=== PATIENT | male | born 1990 | race Caucasian/White ===

== ENCOUNTER → 2017-02-07 | Outpatient (CLI) | payer MEDICAID ==
--- NOTE | 2017-02-07 20:03 | CT ---
EXAMINATION TYPE: CT abdomen pelvis w con DATE OF EXAM: 02/07/2017 7:39 PM COMPARISON: NONE HISTORY: Constipation and generalized abdominal pain x [address] DLP: 1412.00 mGycm Automated exposure control for dose reduction was used. TECHNIQUE: Helical acquisition of images was performed from the lung bases through the pelvis. CONTRAST: Performed with Oral Contrast and with IV Contrast, patient injected with 100 mL of Omnipaque 300. FINDINGS: Lung bases are clear. There is no pleural effusion. Heart size is normal. Liver spleen pancreas gallbladder appear normal. Bile ducts are not dilated. There is no adrenal mass . Kidneys show satisfactory contrast opacification. There is no hydronephrosis. Ureters are not dilat ed. There is no retroperitoneal adenopathy. There is no ascites. Bladder distends smoothly. There is no sign of a pelvic mass. I see no intestinal wall thickening. There are no dilated loops. Appendix a ppears normal. I see no bony destructive process. IMPRESSION: NEGATIVE CT SCAN OF THE ABDOMEN AND PELVIS. NORMAL APPENDIX.
== END ==
LOC: RADCTMAIN 19:05
PROVIDERS: ATTEND Internal Medicine
DX: K59.00 Constipation, unspecified (principal); R10.84 Generalized abdominal pain
CPT/HCPCS: 74177; Q9967

== ENCOUNTER 2020-04-22 00:50 | Emergency (ER) | payer MEDICAID ==
[2020-04-22 01:02] VITALS: BP 144/85; PULSE 97; RESP 18; TEMP 100.3
--- NOTE | 2020-04-22 01:31 | XR ---
EXAMINATION TYPE: XR chest 2V DATE OF EXAM: 04/22/2020 COMPARISON: NONE HISTORY: Fever. Short of breath TECHNIQUE: 2 views FINDINGS: Heart and mediastinum are normal. Lungs are clear. Diaphragm is normal. Bony thorax appears normal. IMPRESSION: Normal chest.
--- NOTE | 2020-04-22 01:45 | ED ---
Fever HPI - General Chief Complaint: Fever Stated Complaint: Fever, SOB Time Seen by Provider: 04/22/20 01:04 Source: patient Mode of arrival: ambulatory Limitations: no limitations - History of Present Illness Initial Comments: Patient is a 29-year-old male presenting to the emergency Department with complaints of a fever for the past 3 days. Patient states he went to lay down tonight to go to sleep when he had an episode of shortness of breath. Patient states he decided to come to the ER to be seen. He states that time he got to the ER he no longer feels short of breath. He does have a history of mild asthma. He denies having a cough, chest pain, nausea, vomiting, chest congestion, nasal congestion, sore throat, ear pain. He states he's been taking Tylenol at home for his fever. He has no further complaints at this time. Upon arrival to ER, patient was febrile, rest of vitals normal. - Related Data Previous Rx's Medication Instructions Recorded Albuterol Inhaler [Ventolin Hfa 1 puff INHALATION RT-QID PRN #1 04/22/20 Inhaler] puff Azithromycin [Zithromax Z-pack] 0 mg PO DIRECTED #1 pack 04/22/20 Allergies Allergy/AdvReac Type Severity Reaction Status Date / Time No Known Allergies Allergy Verified 04/22/20 01:02 Review of Systems ROS Statement: Those systems with pertinent positive or pertinent negative responses have been documented in the HPI. ROS Other: All systems not noted in ROS Statement are negative. Past Medical History Past Medical History: No Reported History History of Any Multi-Drug Resistant Organisms: None Reported Past Surgical History: No Surgical Hx Reported Past Psychological History: No Psychological Hx Reported Smoking Status: Light tobacco smoker Past Alcohol Use History: Daily Past Drug Use History: None Reported General Exam - General Exam Comments Initial Comments: GENERAL: Well-appearing, well-nourished and in no acute distress. HEAD: Atraumatic, normocephalic. EYES: Pupils equal round and reactive to light, extraocular movements intact, sclera anicteric, conjunctiva are normal. ENT: TMs normal, nares patent, oropharynx clear without exudates. Moist mucous membranes. NECK: Normal range of motion, supple without lymphadenopathy or JVD. LUNGS: Breath sounds clear to auscultation bilaterally and equal. No wheezes rales or rhonchi. HEART: Regular rate and rhythm without murmurs, rubs or gallops. ABDOMEN: Soft, nontender, normoactive bowel sounds. No guarding, no rebound. No masses appreciated. : Deferred EXTREMITIES: Normal range of motion, no pitting or edema. No clubbing or cyanosis. NEUROLOGICAL: Normal speech, normal gait. PSYCH: Normal mood, normal affect. SKIN: Warm, Dry, normal turgor, no rashes or lesions noted. Limitations: no limitations Course Vital Signs 04/22/20 01:00 Temperature 100.3 F H Pulse Rate 97 Respiratory 18 Rate Blood Pressure 144/85 O2 Sat by Pulse 97 Oximetry Medical Decision Making - Medical Decision Making Patient is a 29-year-old male here for fever 3 days. Exam is unremarkable. Chest x-ray shows no acute process. I discussed with patient that his symptoms are most likely viral in nature. However given his length of symptoms I did prescribe a Z-Angel Luis if symptoms persist as well as inhaler to use as needed for shortness of breath. Patient is in agreement with this plan of care. Return parameters were discussed with the patient and he verbalized understanding. Disposition Clinical Impression: Fever, Shortness of breath Disposition: HOME SELF-CARE Condition: Stable Instructions (If sedation given, give patient instructions): Fever in Adults (ED) Additional Instructions: Please return to the Emergency Department if symptoms worsen or any other concerns. Use inhaler as needed for shortness of breath. If fever continues, may start antibiotics. Follow up with PCP Prescriptions: Albuterol Inhaler [Ventolin Hfa Inhaler] 1 puff INHALATION RT-QID PRN #1 puff PRN Reason: Shortness Of Breath Azithromycin [Zithromax Z-pack] 0 mg PO DIRECTED #1 pack Is patient prescribed a controlled substance at d/c from ED?: No Referrals: Nathaniel Graf MD [Primary Care Provider] - 1-2 days
== END 2020-04-22 01:51 | disposition home or self-care (01) ==
LOC: EC 00:50
DX: R50.9 Fever, unspecified (principal); R06.02 Shortness of breath; F17.200 Nicotine dependence, unspecified, uncomplicated
CPT/HCPCS: 71046; 99283

== ENCOUNTER 2020-05-30 09:41 | Emergency (ER) | payer MEDICAID ==
[2020-05-30] MEDS ORDERED: SODIUM CHLORIDE 0.9% 1,000 ML IV STA (10:05)
[2020-05-30 10:27] LABS: Basophils % (A) 0 %; Eosinophils # (A) 0.1 k/uL (0-0.7); Eosinophils % (A) 1 %; HCT 46.4 % (39.0-53.0); HGB 16.1 gm/dL (13.0-17.5); Lymphocytes # (A) 1.1 k/uL (1.0-4.8); Lymphocytes % (A) 15 %; MCH 29.9 pg (25.0-35.0); MCHC 34.6 g/dL (31.0-37.0); MCV 86.3 fL (80.0-100.0); Monocytes # (A) 0.2 k/uL (0-1.0); Monocytes % (A) 3 %; Neutrophils % (A) 80 %; Platelet Count 194 k/uL (150-450); RBC 5.38 m/uL (4.30-5.90); RDW 12.9 % (11.5-15.5); WBC 7.5 k/uL (3.8-10.6)
--- NOTE | 2020-05-30 10:28 | ED ---
General Adult HPI - General Chief complaint: Dizziness Stated complaint: anxiety Time Seen by Provider: 05/30/20 09:46 Source: patient, RN notes reviewed, old records reviewed Mode of arrival: ambulatory Limitations: no limitations - History of Present Illness Initial comments: 29 old male presenting for evaluation of multiple complaints, patient has not felt well for the past one week. He's had symptoms of lightheadedness, he had an episode of chest pain yesterday afternoon. He has been quite stressed by his job and has felt anxious. He reports he did not eat or drink much yesterday and had an episode of lightheadedness and chest pain. He has no chest pain at the time my evaluation. He feels fatigued. No headache. He believes he had upper respiratory infection approximately one month ago and this may have been COVID, he states he symptoms have resolved. He is otherwise healthy. Severity scale (1-10): 0 - Related Data Home Medications Medication Instructions Recorded Confirmed No Known Home Medications 05/30/20 05/30/20 Allergies Allergy/AdvReac Type Severity Reaction Status Date / Time No Known Allergies Allergy Verified 05/30/20 10:28 Review of Systems ROS Statement: Those systems with pertinent positive or pertinent negative responses have been documented in the HPI. ROS Other: All systems not noted in ROS Statement are negative. Past Medical History Past Medical History: No Reported History History of Any Multi-Drug Resistant Organisms: None Reported Past Surgical History: No Surgical Hx Reported Past Psychological History: No Psychological Hx Reported Smoking Status: Never smoker Past Alcohol Use History: Occasional Past Drug Use History: None Reported General Exam Limitations: no limitations General appearance: alert, in no apparent distress Head exam: Present: atraumatic, normocephalic Eye exam: Present: normal appearance, PERRL, EOMI ENT exam: Present: mucous membranes dry Neck exam: Present: normal inspection. Absent: tenderness, meningismus Respiratory exam: Present: normal lung sounds bilaterally. Absent: respiratory distress, wheezes, rales Cardiovascular Exam: Present: regular rate, normal rhythm GI/Abdominal exam: Present: soft. Absent: distended, tenderness, guarding, rebound Extremities exam: Present: normal inspection, normal capillary refill. Absent: pedal edema Neurological exam: Present: alert, oriented X3, CN II-XII intact, other (No ataxia, normal finger to nose bilaterally, normal [id number] bilaterally.). Absent: motor sensory deficit Psychiatric exam: Present: anxious Skin exam: Present: warm, dry, intact. Absent: cyanosis, diaphoretic Course Vital Signs 05/30/20 05/30/20 09:45 10:07 Temperature 98.4 F Pulse Rate 83 Pulse Rate [ 82 Sitting] Pulse Rate [ 84 Standing] Pulse Rate [ 83 Supine] Respiratory 18 18 Rate Blood Pressure 140/88 Blood Pressure 140/86 [Sitting] Blood Pressure 139/84 [Standing] Blood Pressure 140/79 [Supine] O2 Sat by Pulse 99 Oximetry EKG Findings - EKG Comments: EKG Findings:: EKG: Normal sinus rhythm with sinus arrhythmia rate of 84, ID interval 126, QRS duration 96, QTC 437, no ST segment elevation. Medical Decision Making - Medical Decision Making 29-year-old male with symptoms suggestive of dehydration, anxiety. Patient has normal neurologic exam, stable vitals, EKG showing sinus rhythm. He has normal CBC, normal CMP, negative troponin, normal electrolytes. Feels better after IV hydration. I suspect component of poor appetite secondary to anxiety. He will be present with any worsening or changing symptoms. He will follow-up with his primary care physician. - Lab Data Result diagrams: 05/30/20 10:19 05/30/20 10:19 Lab Results 05/30/20 05/30/20 05/30/20 Range/Units 10:19 10:19 10:19 WBC 7.5 (3.8-10.6) k/uL RBC 5.38 (4.30-5.90) m/uL Hgb 16.1 (13.0-17.5) gm/dL Hct 46.4 (39.0-53.0) % MCV 86.3 (80.0-100.0) fL MCH 29.9 (25.0-35.0) pg MCHC 34.6 (31.0-37.0) g/dL RDW 12.9 (11.5-15.5) % Plt Count 194 (150-450) k/uL Neutrophils % 80 % Lymphocytes % 15 % Monocytes % 3 % Eosinophils % 1 % Basophils % 0 % Neutrophils # 6.0 (1.3-7.7) k/uL Lymphocytes # 1.1 (1.0-4.8) k/uL Monocytes # 0.2 (0-1.0) k/uL Eosinophils # 0.1 (0-0.7) k/uL Basophils # 0.0 (0-0.2) k/uL Sodium 140 (137-145) mmol/L Potassium 4.5 (3.5-5.1) mmol/L Chloride 104 (98-107) mmol/L Carbon Dioxide 26 (22-30) mmol/L Anion Gap 10 mmol/L BUN 12 (9-20) mg/dL Creatinine 0.85 (0.66-1.25) mg/dL Est GFR (CKD-EPI)AfAm >90 (>60 ml/min/1.73 sqM) Est GFR (CKD-EPI)NonAf >90 (>60 ml/min/1.73 sqM) Glucose 124 H (74-99) mg/dL Calcium 9.7 (8.4-10.2) mg/dL Magnesium 2.1 (1.6-2.3) mg/dL Total Bilirubin 1.2 (0.2-1.3) mg/dL AST 23 (17-59) U/L ALT 24 (4-49) U/L Alkaline Phosphatase 51 (38-126) U/L Troponin I <0.012 (0.000-0.034) ng/mL Total Protein 7.6 (6.3-8.2) g/dL Albumin 4.8 (3.5-5.0) g/dL Disposition Clinical Impression: Dehydration Disposition: HOME SELF-CARE Condition: Good Instructions (If sedation given, give patient instructions): Dizziness (ED), Dehydration (ED) Is patient prescribed a controlled substance at d/c from ED?: No Referrals: Nathaniel Graf MD [Primary Care Provider] - 1-2 days Time of Disposition: 11:16
[2020-05-30 10:43] LABS: ALT 24 U/L (4-49); AST 23 U/L (17-59); African American GFR (CKD) >90 (>60 ml/min/1.73 sqM); Albumin 4.8 g/dL (3.5-5.0); Alkaline Phosphatase 51 U/L (38-126); Anion Gap 10 mmol/L; Blood Urea Nitrogen 12 mg/dL (9-20); Calcium 9.7 mg/dL (8.4-10.2); Carbon Dioxide 26 mmol/L (22-30); Chloride 104 mmol/L (98-107); Glucose 124 mg/dL (74-99); Magnesium 2.1 mg/dL (1.6-2.3); Non-African American GFR(CKD) >90 (>60 ml/min/1.73 sqM); Potassium 4.5 mmol/L (3.5-5.1); Sodium 140 mmol/L (137-145); Total Bilirubin 1.2 mg/dL (0.2-1.3); Total Protein 7.6 g/dL (6.3-8.2)
[2020-05-30 11:37] VITALS: BP 136/77; PULSE 86; RESP 16; TEMP 98.1
== END 2020-05-30 11:30 | disposition home or self-care (01) ==
LOC: EC 09:41
DX: E86.0 Dehydration (principal)
CPT/HCPCS: 36415; 80053; 83735; 84484; 85025; 93005; 96360; 99284

== ENCOUNTER → 2020-06-23 | Outpatient (CLI) | payer MEDICAID ==
[2020-06-23 15:14] LABS: Basophils % (A) 0 %; Eosinophils % (A) 1 %; HCT 49.2 % (39.0-53.0); HGB 16.1 gm/dL (13.0-17.5); Lymphocytes # (A) 1.4 k/uL (1.0-4.8); Lymphocytes % (A) 20 %; MCH 28.6 pg (25.0-35.0); MCHC 32.7 g/dL (31.0-37.0); MCV 87.5 fL (80.0-100.0); Mean Platelet Volume 7.9; Monocytes # (A) 0.3 k/uL (0-1.0); Monocytes % (A) 4 %; Neutrophils # (A) 5.1 k/uL (1.3-7.7); Neutrophils % (A) 74 %; Platelet Count 204 k/uL (150-450); RBC 5.62 m/uL (4.30-5.90); RDW 12.8 % (11.5-15.5); WBC 6.9 k/uL (3.8-10.6)
[2020-06-23 19:06] LABS: African American GFR (CKD) 117.4 (60.0-200.0); Anion Gap 8.8 mmol/L (4.00-12.00); Calcium 10.2 mg/dL (8.7-10.3); Carbon Dioxide 29.2 mmol/L (21.6-31.8); Globulin 2.5 g/dL (1.6-3.3); Non-African American GFR(CKD) 101.3 (60.0-200.0); Potassium 4.8 mmol/L (3.5-5.5); Total Bilirubin 0.9 mg/dL (0.2-1.2); Total Protein 7.5 g/dL (6.2-8.2)
== END | disposition home or self-care (01) ==
LOC: LABWHC1 13:43
PROVIDERS: ATTEND Family Medicine
DX: M79.10 Myalgia, unspecified site (principal)
CPT/HCPCS: 36415; 80053; 82550; 85025; 86038; 86308; 86618; 86644; 86645

== ENCOUNTER → 2021-10-05 | Outpatient (CLI) | payer MEDICAID ==
[2021-10-05 15:15] LABS: Basophils # (A) 0.04 X 10*3/uL (0.00-0.10); Basophils % (A) 0.7 %; Eosinophils # (A) 0.07 X 10*3/uL (0.04-0.35); Eosinophils % (A) 1.1 %; HGB 16.5 g/dL (13.0-17.0); Lymphocytes # (A) 1.67 X 10*3/uL (0.90-5.00); Lymphocytes % (A) 27.4 %; MCH 29.9 pg (27.0-32.0); MCHC 34.4 g/dL (32.0-37.0); MCV 87.1 fL (80.0-97.0); Mean Platelet Volume 11.4 fL (9.5-12.2); Monocytes # (A) 0.49 X 10*3/uL (0.20-1.00); Neutrophils # (A) 3.77 X 10*3/uL (1.80-7.70); Neutrophils % (A) 61.8 %; Platelet Count 194 X 10*3/uL (140-440); RBC 5.51 X 10*6/uL (4.40-5.60); RDW 11.9 % (11.5-14.5)
[2021-10-05 18:55] LABS: ALT 35 U/L (10-49); AST 22 U/L (14-35); African American GFR (CKD) 115.7 (60.0-200.0); Albumin 5.1 g/dL (3.8-4.9); Albumin/Globulin Ratio 2.13 (1.60-3.17); Alkaline Phosphatase 61 U/L (41-126); Blood Urea Nitrogen 12.3 mg/dL (9.0-27.0); Calcium 9.8 mg/dL (8.7-10.3); Carbon Dioxide 24.3 mmol/L (21.6-31.8); Chloride 103 mmol/L (96-109); Chol/HDL Ratio 4.23 Ratio; Globulin 2.4 g/dL (1.6-3.3); Glucose 92 mg/dL (70-110); Non-African American GFR(CKD) 99.8 (60.0-200.0); Potassium 4.7 mmol/L (3.5-5.5); Sodium 143 mmol/L (135-145); Total Protein 7.5 g/dL (6.2-8.2)
== END | disposition home or self-care (01) ==
LOC: LABWHC1 10:11
PROVIDERS: ATTEND Family Medicine
DX: Z00.00 Encounter for general adult medical examination without abnormal findings (principal); R00.2 Palpitations; R53.83 Other fatigue
CPT/HCPCS: 36415; 80053; 80061; 82306; 84439; 84443; 85025

== ENCOUNTER → 2022-02-28 | Outpatient (CLI) | payer MEDICAID ==
--- NOTE | 2022-02-28 19:08 | CT ---
EXAMINATION TYPE: CT sinus wo con DATE OF EXAM: 02/28/2022 COMPARISON: None available HISTORY: Acute sinusitis CT DLP: 678.30 mGycm. Automated Exposure Control for Dose Reduction was Utilized. TECHNIQUE: CT scan of the sinuses is performed without contrast, axial images are obtained, coronal r eformatted images are also reviewed. FINDINGS: Slightly deviated bony nasal septum convex to the left side. Paradoxical middle turbinates. Remodelin g of the right inferior turbinate. No significant mucosal thickening of the nasal fossa bilaterally. Patent infundibulum bilaterally. 2.4 cm polyp/retention cyst at the alveolar recess of the left maxil mook sinus with 1.3 cm polyp/retention cyst on the right side. Unremarkable maxillary sinuses otherwi se. Unremarkable frontal sinus, ethmoid air cells and sphenoid sinus. Patent sphenoethmoidal recesses. Cl ear visualized mastoid air cells. Slightly prominent nasopharyngeal soft tissue, please correlate cli nically. Unremarkable orbits. IMPRESSION: Polyps/retention cysts within the maxillary sinuses as detailed above. Otherwise grossly unremarkable paranasal sinuses. Incidental findings as described above.
== END | disposition home or self-care (01) ==
LOC: RADCTMAIN 16:14
PROVIDERS: ATTEND Otolaryngology
DX: J34.1 Cyst and mucocele of nose and nasal sinus (principal)
CPT/HCPCS: 70486